=== PATIENT | male | born 1965 | race African-American/Black ===

== ENCOUNTER 2020-04-21 10:25 | Emergency (ER) | payer OTHER, SELFPAY ==
[2020-04-21 10:43] VITALS: BP 133/97; PULSE 68; RESP 16; TEMP 37.1; O2SAT 99
[2020-04-21 11:04] VITALS: BP 128/96
--- NOTE | 2020-04-21 11:18 | ED.BACK ---
HPI - Back Pain/Injury General Chief Complaint: Extremity Injury, Lower Stated Complaint: left leg/back pain Time Seen by Provider: 04/21/20 10:49 Source: patient and RN notes reviewed Mode of arrival: ambulatory Limitations: no limitations History of Present Illness HPI Narrative: Patient presents today complaining of left-sided low back pain radiating to the left posterior knee since yesterday. He experienced a pop in his back after lifting heavy boxes in a storage unit. Currently rates his pain 6/10, which increases with walking, sitting, standing. He took a leftover Flexeril and has been using Epson salt without much relief. History of left-sided sciatica in the past that was improved with physical therapy. Also history of 3 bulging disks in the lumbar spine. Denies numbness or tingling in the extremities. Denies any loss of bowel or bladder control. MD elicited complaint: back pain Related Data Home Medications Medication Instructions Recorded Confirmed amlodipine 5 mg PO DAILY 04/21/20 04/21/20 metoprolol succinate 25 mg PO DAILY 04/21/20 04/21/20 Allergies Allergy/AdvReac Type Severity Reaction Status Date / Time bacitracin Allergy Rash Verified 04/21/20 10:47 [From Neosporin ([id number])] neomycin Allergy Rash Verified 04/21/20 10:47 [From Neosporin ([id number])] polymyxin B Allergy Rash Verified 04/21/20 10:47 [From Neosporin ([id number])] Review of Systems Review of Systems: Narrative: CONSTITUTIONAL: Denies body aches, fever, chills, or sweats. EYES: Denies visual changes, redness, or discharge. ENT: Denies rhinorrhea, congestion, sore throat, or otalgia. CARDIOVASCULAR: Denies chest pain, palpitations, or edema. RESPIRATORY: Denies cough or dyspnea. GASTROINTESTINAL: Denies abdominal pain, nausea, vomiting, or diarrhea. GENITOURINARY: Denies dysuria or hematuria. SKIN: Denies rash, itching, or wounds. MUSCULOSKELETAL: Denies joint pain, or myalgia. + back pain NEUROLOGIC: Denies headache, numbness, tingling, or weakness. PSYCH: Denies depression or anxiety. [facility] Past Medical History Medical History (Updated 04/21/20 @ 11:29 by Blessing Sarmiento, FAMILY COURT COUNSELLOR, ) Sciatica Social History Social History Gender identity (if verbalized by the patient): Male Comments At time of signature, I have reviewed and agree with nursing past medical, surgical, social and family history unless otherwise noted. Please see nursing chart for further information. There is no relevant family history pertinent to the presenting complaint Exam Narrative: Exam Narrative: GENERAL: Well-appearing, well-nourished, and in mild pain distress. Guarding when sitting on exam table and standing. HEAD: Normocephalic, atraumatic. EYES: EOMI. No redness or drainage. Conjunctivae normal. ENT: Mucous membranes pink and moist. NECK: Normal AROM. CHEST: No respiratory distress. Clear to auscultation. HEART: Regular rate and rhythm. No murmur appreciated. Normal peripheral pulses. ABDOMEN: Soft, nontender, nondistended, normal active bowel sounds. MUSCULOSKELETAL: Mild tenderness to the lower lumbar spine. Mild left paraspinal muscle tenderness with small palpable muscle spasm. Palpation of the left SI joint reproduces radiating pain to the posterior knee. Distal sensation intact. Saddle sensation intact. Capillary refill normal. Left SLR ilicits pain in the posterior upper leg at 35-45 degrees. Right leg normal. EXTREMITIES: Foot push and pulls normal. SKIN: Warm, dry, no rash. Capillary refill normal. Normal skin turgor. NEURO: No focal deficits. Alert and oriented x3. Gait steady. PSYCH: Normal affect. No signs of depression or anxiety. Course Vital Signs Vital signs: Vital Signs Temperature 98.7 F 04/21/20 10:43 Pulse Rate 68 04/21/20 10:43 Respiratory Rate 16 04/21/20 10:43 Blood Pressure 133/97 H 04/21/20 10:43 Pulse Oximetry 99 04/21/20 10:43
== END 2020-04-21 11:35 | disposition home or self-care (01) ==
PROVIDERS: Emergency Provider Nurse Practitioner
DX: M54.32 Sciatica, left side (principal); I10 Essential (primary) hypertension
CPT/HCPCS: 99203; G0463

== ENCOUNTER 2022-02-21 13:34 | Outpatient (CLI) | payer BC, MEDICAID, SELFPAY ==
--- NOTE | 2022-02-23 12:32 | WPDHOLTEREM ---
Holter/Event Monitor Holter/Event Monitor Date of procedure: 02/21/22 Holter/Event Procedure: 24 Hr Holter Monitor Indications: Irregular heart rate Conclusion: 1. 24 hour holter monitor on 02/21/22. 2. Predominant rhythm is sinus rhythm. HR range 53-105 bpm; average HR 72 bpm. 3. There are 3,698 premature supraventricular complexes, 133 supraventricular couplets, 106 supraventricular bigeminy and 136 supraventricular trigeminy. There are 6 episodes of atrial tachycardia, fastest at 152 bpm and longest lasting 15 beats. 4. There are 122 premature ventricular complexes, 5 ventricular couplets, 16 ventricular bigeminy. There are 2 episodes of ventricular tachycardia, fastest at 188 bpm and longest lasting 5 beats. 5. No sinoatrial or atrioventricular blocks. No significant pauses greater than 2 seconds. 6. Patient reports symptoms of lightheadedness/heart flutter which demonstrates sinus rhythm at 69 bpm.
== END 2022-02-21 13:35 | disposition home or self-care (01) ==
LOC: ANHCARD 13:36
PROVIDERS: Visit Provider Internal Medicine
DX: R00.8 Other abnormalities of heart beat (principal)
CPT/HCPCS: 93225; 93226

== ENCOUNTER 2024-04-24 21:30 | Observation (INO) | payer OTHER, MEDICAID, SELFPAY ==
--- NOTE | ~2024-04-24 | CT_ITS ---
EXAMINATION: CT brain wo con DATE: 04/24/2024 21:48 INDICATION: Stroke. TECHNIQUE: Computed tomography (CT) of the head was performed without intravenous contrast. The mA wa s adjusted according to patient size. Iterative reconstruction technique was employed. The dose-lengt h product was 529.67 mGy-cm. COMPARISON: None FINDINGS: There is no intracranial hemorrhage, acute infarction, or abnormal intracranial mass lesion . The ventricles are normal in size. The orbits are normal. The paranasal sinuses are clear. The mast oid air cells are normal. IMPRESSION: 1. Normal brain. I called this result to Dr. Garrett. Reviewed, dictated and finalized at location A.
--- NOTE | ~2024-04-24 | XR_ITS ---
EXAMINATION: XR chest 1V DATE: 04/24/2024 22:01 INDICATION: Stroke. Altered mental status. TECHNIQUE: A single frontal view of the chest was obtained. COMPARISON: None. FINDINGS: There is no pneumonia, pleural effusion, or pneumothorax. The heart size is normal. IMPRESSION: 1. No acute cardiopulmonary disease. Reviewed, dictated and finalized at location A.
--- NOTE | ~2024-04-24 | CT_ITS ---
EXAMINATION: CTA brain carotid DATE: 04/24/2024 23:26 INDICATION: Stroke. TECHNIQUE: Computed tomographic angiography (CTA) of the head was performed with 100 mL Omnipaque-350 intravenous contrast. CTA of the neck was performed with intravenous contrast. Automated exposure co ntrol and iterative reconstruction technique were employed. The dose-length product was 1108.37 mGy-c m. Maximum intensity projection and volume rendered 3D-reconstructions were created by the [employer] st on a separate workstation. COMPARISON: Head CT 04/24/24 FINDINGS: HEAD CTA: There is no intracranial hemorrhage, acute infarction, or abnormal intracranial mass lesion . The ventricles are normal in size. The orbits are normal. There is mild mucosal thickening in the p aranasal sinuses. The mastoid air cells are normal. Left vertebral artery is dominant. The stents in the stenosis of basilar artery or the posterior cerebral arteries. There is no significant stenosis o f the intracranial internal carotid arteries or anterior cerebral arteries. There is total occlusion of proximal right middle cerebral artery. Anterior communicating artery is normal. The posterior comm unicating arteries are normal. There is no aneurysm. NECK CTA: There is mild emphysema. There are no pathologically enlarged lymph nodes. There is no sign ificant stenosis of the vertebral arteries. There is plaque in the proximal internal carotid arteries . There is 0% stenosis of the proximal right internal carotid artery relative to normal distal artery lumen diameter (NASCET criteria). There is 0% stenosis of the proximal left internal carotid artery relative to normal distal artery lumen diameter. There is mild cervical spondylosis. IMPRESSION: 1. Total occlusion of proximal right middle cerebral artery. No visible infarct. 2. 0% stenosis of the proximal internal carotid arteries relative to normal distal artery lumen diame ters (NASCET criteria). Reviewed, dictated and finalized at location A. IMPRESSION: 1. Total occlusion of proximal right middle cerebral artery. No visible infarct . 2. 0% stenosis of the proximal internal carotid arteries relative to normal dis lo artery lumen diameters (NASCET criteria).
--- NOTE | ~2024-04-24 | US_ITS ---
EXAMINATION: US carotid duplex BI DATE: 04/25/2024 11:17 INDICATION: CVA TECHNIQUE: Grayscale, color Doppler, and pulsed Doppler images of the cervical carotid arteries were obtained. The degree of vessel stenosis is placed in one of the following categories: normal, <50%, 5 0-69%, >=70% but less than near-occlusion, near-occlusion, or total occlusion. Note that percent sten osis relative to normal distal artery lumen diameter is indirectly measured from velocity measurement s as described by Janes, et al. Radiology 2003; 229:340-346. Notes: Normal: Peak systolic velocity <125 centimeters/sec and no plaque <50%. Peak systolic velocity <125 ( EDV <40; ICA/CCA PSV ratio <2.0; used these factors only a tandem lesions or low cardiac output or co ntralateral disease) 50-69 %: PSV 125-230 (EDV 40-100; ratio 2-4) >= 70% but less than near occlusion: PSV greater than 230 (EDV > 100; ratio> 4.0) Near Occlusion: PSV that is variable; markedly narrowed lumen Occlusion: Absent flow on color/spectral Doppler and no lumen on lagos scale. COMPARISON: None. FINDINGS: RIGHT: The right common carotid artery (CCA) peak systolic velocity (PSV) is 77 cm/s. The right internal car otid artery (ICA) PSV is 2 cm/s. The right ICA end-diastolic velocity (EDV) is 21 cm/s. The right ICA /CCA PSV ratio is 0.9. The external carotid artery (ECA) PSV is 42 cm/s. There is antegrade flow in t he right vertebral artery. LEFT: The left CCA PSV is 63 cm/s. The left ICA PSV is 54 cm/s. The left ICA EDV is 24 cm/s. The left ICA/C CA PSV ratio is 0.9. The ECA PSV is 49 cm/s. There is antegrade flow in the left vertebral artery. IMPRESSION: 1. Less than 50% stenosis in the right internal carotid artery by sonographic criteria. 2. Less than 50% stenosis in the left internal carotid artery by sonographic criteria. Reviewed, dictated and finalized at location B. IMPRESSION: 1. Less than 50% stenosis in the right internal carotid artery by sonographic amngo whitehead. 2. Less than 50% stenosis in the left internal carotid artery by sonographic catracho maxwell.
--- NOTE | ~2024-04-24 | MR_ITS ---
EXAMINATION: MR brain/brain stem wo/w con DATE: 04/25/2024 11:46 INDICATION: Right middle cerebral artery occlusion TECHNIQUE: Magnetic resonance imaging (MRI) of the brain and brainstem was performed without and with 20 mL Multihance intravenous contrast. Sequences included sagittal and axial T1-weighted SE, axial d iffusion-weighted FS SE, axial 3D SWAN, axial T2-weighted FLAIR, and axial T2-weighted FSE. Postcontr ast axial and coronal T1-weighted SE was obtained. Apparent diffusion coefficient (ADC) maps were cre ated. COMPARISON: Head CT and CT angiogram dated 04/24/2024 FINDINGS: Several regions of restricted diffusion in the right middle cerebral artery vascular distribution con sistent with acute infarct. This includes a moderate-sized region at the anterior right temporal lobe , small region in the right parieto-occipital region and a few additional small foci in the posterior right frontal lobe, the posterior right temporal lobe and in the subinsular white matter. There is s ome associated cytotoxic edema associated with the regions of infarct on the T2-weighted imaging. No intracranial hemorrhage or abnormal intracranial mass lesion. There are no intraparenchymal signal ab normalities seen on the other pulse sequences. The ventricles are symmetric and normal in size. There are no abnormal extra-axial fluid collections. With the exception of the previously noted thrombosed distal right middle cerebral artery, flow voids are seen in the cerebral arteries on the T2-weighted sequences consistent with their expected patency. There is asymmetric increased prominence of small contrast opacified vessels along the right sylvian fissure when compared with the left likely related to collateral flow with luxury perfusion. There are no abnormally enhancing brain lesions. Visualize d orbits and soft tissues are unremarkable. IMPRESSION: 1. 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 Reviewed, dictated and finalized at location A. IMPRESSION: 1. 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
--- NOTE | ~2024-04-24 | CT_ITS ---
EXAMINATION: CT brain wo con DATE: 04/25/2024 15:49 INDICATION: Cerebral vascular accident. TECHNIQUE: Computed tomography (CT) of the head was performed without intravenous contrast. The mA wa s adjusted according to patient size. Iterative reconstruction technique was employed. The dose-lengt h product was 605.33 mGy-cm. COMPARISON: Head CT 04/24/2024, brain MRI 04/25/2024 FINDINGS: There are hypodense acute infarcts involving right insula, right temporal lobe, right parie lo occipital region, and right temporal occipital region. There is no acute intracranial hemorrhage or abnormal mass lesion. The ventricles are normal in size. The orbits are normal. There is mild muco stephanie thickening in the ethmoid sinuses. The mastoid air cells are normal. IMPRESSION: 1. Acute infarcts in the right insula, right temporal lobe, right parietal occipital region, and righ t temporal occipital region, unchanged in distribution from the brain MRI. Reviewed, dictated and finalized at location A. IMPRESSION: 1. Acute infarcts in the right insula, right temporal lobe, right parietal occi pital region, and right temporal occipital region, unchanged in distribution fr om the brain MRI.
--- NOTE | 2024-04-24 21:35 | ECG_ITS ---
Test Date: 2024-04-24 22:51:08 Measurements Intervals [place] Rate: 65 P: 79 IN: 137 QRS: -31 QRSD: 81 T: -37 QT: 412 QTc: 430 Interpretive Statements SINUS RHYTHM WITH OCCASIONAL SUPRAVENTRICULAR PREMATURE COMPLEXES LEFT ATRIAL ENLARGEMENT [-0.15mV P WAVE IN V1/V2] MARKED LEFT AXIS DEVIATION [QRS AXIS < -30] SEPTAL MYOCARDIAL INFARCTION , OF INDETERMINATE AGE [40+ ms Q WAVE IN V1/V2] NONSPECIFIC T-WAVE ABNORMALITY ABNORMAL ECG No previous ECG available for comparison Electronically Signed On 04-25-2024 13:18:41 CDT by Ari Kelley M.D.
[2024-04-24 21:37] LABS: Glucose Point of Care 113 mg/dl (65-105)
[2024-04-24 21:56] LABS: Estimated Glomerular Filt Rate 42
[2024-04-24 21:59] LABS: Basophils Absolute Auto 0.1 K/mm3 (0.0-0.1); Basophils Percent Auto 1.1 % (0.2-1.2); Eosinophils Absolute Auto 0.1 K/mm3 (0-0.3); Eosinophils Percent Auto 1.9 % (0-4.4); Hematocrit 46.5 % (42.0-52.0); Hemoglobin 15.4 g/dL (14.0-18.0); Immature Granulocyte Absolute 0.01 K/mm3 (0.00-0.031); Immature Granulocyte Percent A 0.2 % (0-0.5); Lymphocytes Absolute Auto 2.12 K/mm3 (0.9-3.2); Lymphocytes Percent Auto 40.6 % (18.3-44.2); Mean Corpuscular HGB Conc 33.1 g/dl (32-36); Mean Corpuscular Hemoglobin 28.7 pg (26-34); Mean Corpuscular Volume 86.6 fl (80-100); Mean Platelet Volume 11.6 fl (7.4-10.4); Monocytes Absolute Auto 0.7 K/mm3 (0.1-0.6); Monocytes Percent Auto 13.4 % (2.6-8.5); Neutrophils Absolute Auto 2.2 K/mm3 (1.3-6.7); Neutrophils Percent Auto 42.8 % (45.5-73.1); Platelet Count Result 145 k/mm3 (150-375); Red Blood Count 5.37 M/mm3 (4.6-6.20); Red Cell Distribution Width 16.6 % (11.5-14.5); White Blood Count 5.2 K/mm3 (4.5-10.0)
[2024-04-24 22:06] VITALS: BP 154/105; BP 161/109; PULSE 67; PULSE 70; RESP 22; RESP 73; O2SAT 100
[2024-04-24 22:08] LABS: Prothrombin Time 14.2 Seconds (11.1-14.7)
[2024-04-24 22:09] LABS: Alanine Aminotransferase 23 U/L (6-50); Alkaline Phosphatase 46 U/L (38-126); Anion Gap 8 mmol/L (4-12); Aspartate Amino Transferase 31 U/L (17-59); Bilirubin,Total 0.8 mg/dL (0.2-1.3); Blood Urea Nitrogen 22 mg/dL (9-20); Carbon Dioxide 27 mmol/L (22-30); Chloride 105 mmol/L (98-107); Estimated Glomerular Filt Rate 50; Glucose 95 mg/dL (65-110); Partial Thromboplastin Time 26.6 Seconds (22.3-36.8); Potassium 4.5 mmol/L (3.4-5.0); Sodium 140 mmol/L (137-145)
--- NOTE | 2024-04-24 22:38 | ED.GENADULT ---
HPI - General Adult General Chief complaint: Neuro Symptoms/Deficit Stated complaint: confusion, balance problems Time Seen by Provider: 04/24/24 21:32 History of Present Illness HPI narrative: Patient is a 59-year-old male who presents to the emergency department this evening complaining of an episode of confusion and walking off balance. Patient was at work and was told by his coworkers that he was acting off. Patient's co-worker who is present in the ED with him states that symptoms started a few hours ago. Patient does appear to have mild left-sided facial droop, however, patient and co-worker are not sure if this is a new finding. Patient denies any drug or alcohol abuse and denies any similar symptoms in the past. He denies any focal weakness, numbness and tingling. Denies any history of strokes. States that his only medical history is hypertension and he takes blood pressure medications for this. His currently denying any headaches. No additional symptoms or concerns at this time. Patient is alert and oriented to person, place, time and situation and answering all questions appropriately during my triage assessment. NIH score 1. GCS 15. Related Data Home Medications Medication Instructions Recorded Confirmed atorvastatin 40 mg tablet 40 mg PO HS 04/25/24 04/25/24 metoprolol succinate 50 mg 75 mg PO DAILY 04/25/24 04/25/24 tablet,extended release 24 hr Allergies Allergy/AdvReac Type Severity Reaction Status Date / Time bacitracin Allergy Rash Verified 03/26/24 08:32 [From Neosporin ([id number])] neomycin Allergy Rash Verified 03/26/24 08:32 [From Neosporin ([id number]-[id number])] polymyxin B Allergy Rash Verified 03/26/24 08:32 [From Neosporin ([id number])] Review of Systems Review of Systems: All systems are reviewed and are negative unless stated otherwise in the HPI. [facility] [place] Past Medical History Medical History Sciatica Social History Social History Smoking packs per day: 0.5 Smoking cigarettes per day: 10.0 Smoking status: Current every day smoker Alcohol intake: never Substance use: never Do You Feel Safe in your Home?: Yes Lack of Transportation: No Lack of Food: Never True Current Housing: I Have Housing Concerned About Future Housing: No Difficulty Paying Gas/Electric Bills: No Difficulty Paying for Meds: No Currently Unemployed: No Education: High School Diploma/GED Difficulty w/ Childcare or Family Care: No Gender identity (if verbalized by the patient): Male Spiritual care concerns: Yes Exam Narrative: General: Alert, awake, afebrile, in no acute distress. HEENT: PERRL, no rhinorrhea, no post nasal drip, oropharynx clear. Cardiovascular: Regular rate and rhythm, no murmurs, rubs or gallops, no peripheral edema. Respiratory: Clear to auscultation bilaterally, no tachypnea, no wheezing, no rhonchi, no rubs, no respiratory distress. Abdomen: Soft, nontender, nondistended, no rebound, no guarding, no peritoneal signs. Musculoskeletal: No joint swelling or deformity, normal muscle tone. Skin: No rashes or petechia, no signs of infection. Neurological: Alert and oriented to person, place, and time. Follows all commands. Mild left-sided facial droop noted, 5/5 motor strength in the bilateral upper and lower extremity, sensation intact bilateral upper and lower extremity, cranial nerves 2-12 grossly intact, speech is clear and fluent. NIH score 1, GCS 15. Course Vital Signs Vital signs: Vital Signs Pulse Rate 70 04/24/24 22:06 Respiratory Rate 73 H 04/24/24 22:06 Blood Pressure 154/105 H 04/24/24 22:06 Pulse Oximetry 100 04/24/24 22:06 Oxygen Delivery Room Air 04/24/24 22:06 Temperature 97.7 F 04/25/24 02:22 Pulse Rate 62 04/25/24 02:22 Respiratory Rate 18 04/25/24 02:22 B
[2024-04-24] MEDS: SODIUM CHLORIDE 0.9% IV 1,000 ML 999 ML IV CONT (22:48)
[2024-04-24 23:02] LABS: Add Urine Microscopic? NO; Appearance Urine Clear (Clear); Bilirubin Urine Negative (Negative); Blood Urine Negative (Negative); Color Urine Yellow (Yellow); Glucose Urine UA Negative (Negative); Ketones Urine Trace mg/dL (Negative); Leukocyte Esterase Ur Negative LEU/UL (Negative); Nitrate Urine Negative (Negative); Protein Urine Negative (Negative); Specific Grav Ur 1.022 (1.001-1.035); pH Urine 5.5 (5.0-9.0)
[2024-04-25] VITALS (19 sets, daily range): BP systolic 150–190; BP diastolic 80–113; PULSE 57–76; RESP 16–20; TEMP 36.1–36.6; O2SAT 16–100; BMI 28.1; BMI 29.0
--- NOTE | 2024-04-25 | ECHO_ITS ---
Patient Info Name: Renard Monsalve Age: 59 years : 1965 Gender: Male Ht: 73 in Wt: 220 lbs BSA: 2.29 m2 HR: 69 bpm BP: 153 / 95 mmHg Technical Quality: Fair Exam Date: 04/25/2024 10:10 AM Exam Location: Echo Lab Patient Status: Inpatient Admit Date: 04/25/2024 Staff Ordering Physician: Bina Sol MD Behavioral Modification Assistant: Stefan Carter RDCS Attending Provider: Bina Sol MD Referring Physician: Sweta HERNANDEZ; Exam Type: CA echo doppler w bubble study Study Info Indications - STROKE Complete two-dimensional, color flow and Doppler transthoracic echocardiogram is performed with agitated saline. Summary 1. Left ventricular chamber dimension is normal. 2. Left ventricular systolic function is normal, estimated at 55-60%. 3. There is mild concentric increased left ventricular wall thickness. 4. The left ventricular diastolic function is abnormal. 5. E/e' 19 is elevated. 6. Left atrial chamber dimension is mildly enlarged. 7. There is mild aortic valve regurgitation. 8. The mitral valve has mildly calcified annulus. 9. There is mild mitral valve regurgitation. 10. There is mild tricuspid valve regurgitation. 11. No pulmonary hypertension, estimated pulmonary arterial systolic pressure is 30 mmHg. 12. There is trace pulmonic regurgitation. Left Ventricle E/e' 19 is elevated. Left ventricular chamber dimension is normal. Left ventricular systolic function is normal, estimated at 55-60%. There is mild concentric increased left ventricular wall thickness. The left ventricular diastolic function is abnormal. Right Ventricle Right ventricular systolic function is normal and with normal TAPSE 2.8 cm. Right ventricular chamber dimension is normal. Left Atria Left atrial chamber dimension is mildly enlarged. Right Atria Right atrial chamber dimension is normal. Atrial Septum Agitated saline injection with and without valsalva maneuver opacified right side cardiac chambers without shunt to left side cardiac chambers. Intact interatrial septum visualized by 2D and agitated saline imaging. Aortic Valve The aortic valve is trileaflet. There is no aortic valve sclerosis. There is no aortic valve stenosis. There is mild aortic valve regurgitation. Pulmonic Valve There is trace pulmonic regurgitation. Mitral Valve The mitral valve has mildly calcified annulus. There is no mitral valve stenosis. There is mild mitral valve regurgitation. Tricuspid Valve There is mild tricuspid valve regurgitation. No pulmonary hypertension, estimated pulmonary arterial systolic pressure is 30 mmHg. Pericardium/Pleural There is no pericardial effusion. Inferior Vena Cava Normal inferior vena cava with >50% collapse upon inspiration consistent with normal right atrial pressure, 5 mmHg. Aorta The aortic root size at the sinus of Valsalva is normal. Left Ventricular Outflow Tract Name Value Normal LVOT 2D LVOT Diameter 2.1 cm LVOT Doppler LVOT Peak Gradient 3 mmHg LVOT Mean Gradient 2 mmHg LVOT VTI 19 cm LVOT VTI/AV VTI Ratio 1.1 LVOT Stroke Volume
--- NOTE | 2024-04-25 00:31 | PM.IMHP ---
H&P: HPI History of Present Illness Date/Time: 04/25/24 00:31 Chief Complaint: ams Narrative: This is a 59-year-old male with past medical history significant for paroxysmal atrial fibrillation, hypertension. Patient presents to the emergency room due to altered mental status according to his friends and gait disturbance according to his companionship he was confused and unstable on his gait. Patient denies all of the above states that he feels his usual denies any vision changes, headaches, lightheadedness, focal weakness focal paresthesias. patient was found to have elevated blood pressure in the emergency room and preliminary workup was significant for CT angiogram of head and neck with right middle cerebral artery proximal occlusion with no infarct. Patient has been placed in observation for further evaluation management and treatment. EXAMINATION: CT brain wo con DATE: 04/24/2024 21:48 INDICATION: Stroke. TECHNIQUE: Computed tomography (CT) of the head was performed without intravenous contrast. The mA was adjusted according to patient size. Iterative reconstruction technique was employed. The dose-length product was 529.67 mGy-cm. COMPARISON: None FINDINGS: There is no intracranial hemorrhage, acute infarction, or abnormal intracranial mass lesion. The ventricles are normal in size. The orbits are normal. The paranasal sinuses are clear. The mastoid air cells are normal. IMPRESSION: 1. Normal brain. I called this result to Dr. Garrett. EXAMINATION: XR chest 1V DATE: 04/24/2024 22:01 INDICATION: Stroke. Altered mental status. TECHNIQUE: A single frontal view of the chest was obtained. COMPARISON: None. FINDINGS: There is no pneumonia, pleural effusion, or pneumothorax. The heart size is normal. IMPRESSION: 1. No acute cardiopulmonary disease. EXAMINATION: CTA brain carotid DATE: 04/24/2024 23:26 INDICATION: Stroke. TECHNIQUE: Computed tomographic angiography (CTA) of the head was performed with 100 mL Omnipaque-350 intravenous contrast. CTA of the neck was performed with intravenous contrast. Automated exposure control and iterative reconstruction technique were employed. The dose-length product was 1108.37 mGy-cm. Maximum intensity projection and volume rendered 3D-reconstructions were created by the technologist on a separate workstation. COMPARISON: Head CT 04/24/24 FINDINGS: HEAD CTA: There is no intracranial hemorrhage, acute infarction, or abnormal intracranial mass lesion. The ventricles are normal in size. The orbits are normal. There is mild mucosal thickening in the paranasal sinuses. The mastoid air cells are normal. Left vertebral artery is dominant. The stents in the stenosis of basilar artery or the posterior cerebral arteries. There is no significant stenosis of the intracranial internal carotid arteries or anterior cerebral arteries. There is total occlusion of proximal right middle cerebral artery. Anterior communicating artery is normal. The posterior communicating arteries are normal. There is no aneurysm. NECK CTA: There is mild emphysema. There are no pathologically enlarged lymph nodes. There is no significant stenosis of the vertebral arteries. There is plaque in the proximal internal carotid arteries. There is 0% stenosis of the proximal right internal carotid artery relative to normal distal artery lumen diameter (NASCET criteria). There is 0% stenosis of the proximal left internal carotid artery relative to normal distal artery lumen diameter. There is mild cervical spondylosis. IMPRESSION: 1. Total occlusion of proximal right middle cerebral artery. No visible infarct. 2. 0% stenosis of the proximal internal carotid arteries relative to normal distal artery lumen diameters (NASCET criteria). Review of Systems Review of Systems: Confusion, gait instability [facility] Past Medical History Medical History Sciatica
[2024-04-25 00:56] LABS: Troponin I 0.018 ng/mL (0.000-0.034)
--- NOTE | 2024-04-25 02:29 | ADMGEN ---
This patient, Renard Monsalve, was admitted to IMU Room 211-01 at 0222. Patient/family oriented to hospital policies and general routines including ID bracelet, bed and alarms, visiting hours, pain management, procedures, bathroom and other care routines, personal items, smoking policy, room service/diet, and visiting hours. Information on how to activate the Rapid Response Team has been discussed. Patient/Family are encouraged to report perceived risks to care and to ask questions if they do not understand what they are told or what they should do.
--- NOTE | 2024-04-25 08:13 | PM.IMPN ---
Progress Note: A&P Assessment and Plan (1) Ischemic cerebrovascular accident (CVA): Code(s): I63.9 - Cerebral infarction, unspecified Status: Acute (2) Stroke: Code(s): I63.9 - Cerebral infarction, unspecified Status: Acute (3) PAF (paroxysmal atrial fibrillation): Code(s): I48.0 - Paroxysmal atrial fibrillation Status: Acute (4) Hypertension: Code(s): I10 - Essential (primary) hypertension Status: Acute Plan #CVA -Head/ Neck CTA :Reviewed -MRI : Order -Carotid US:Reviewed - Nurse call around 15:15 reporting she witnessed facial droop, left and left leg weakness. When I examined he completely recovered no signs of any facial droop or leg weakness. Although after 5 minutes patient again exhibited the left-sided facial droop and left-sided upper and lower extremity weakness. Ordered stat CT scan to rule out any hemorrhagic conversion of the stroke. The repeat CT scan shows acute infarct in the right insula, right temporal lobe right parietal occipital region, and right temporal occipital region unchanged in the distribution from the brain MRI. Patient currently had a NIH score is 6. Later about 30 minutes patient had urinary incontinence. No evidence of seizures. We called [facility] and spoke with Dr Enriquez were reported he has been crossed the Medical window for any intervention but will definitely get benefit from the the facility with neuro intervention/neurologist. The call was transferred to [facility], I spoke with the Dr. Schmitt who agreed for Critical transfer.Advised not to intervene his BP, which -Head and neck CTA shows total occlusion of proximal right middle cerebral artery. No visible infarct. 0% stenosis of the proximal internal carotid arteries related to normal distal to the lumen diameter. The head CTA shows stents in the stenosis of the basilar artery which we would like to need clarification from the radiology. -Started high-dose atorvastatin 80 mg, aspirin 81 and Plavix. -Underwent MRI and reviewed result. -Echocardiogram ordered # A.FIB -CHADVASC 1 -On asa 325 mg-Hold -Metoprolol 75 mg PO QD -Doesnt remember whether he takes AC or not. -Pharmacy report he was taking Flecainide 50mg PO BID but it was not filled from November. -Cardiology office note 03/26/2024:Advise to increase Flecainide 50 mg BID. And increase Metoprolol Succinate 75 mg and follow-up in 2 months Transfer to [facility] as critical care patient. Subjective Date/time seen: 04/25/24 08:13 Interval history: AM:Patient was examined at the bedside with the presence of his . 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 The student tank driver reported he was losing balance although he denies it. The student reported that he is stepping on a paper which he denies seeing. Patient denies any loss of vision, loss of conscious, muscle weakness, or neurological deficits. Student tank driver called his boss who advised the patient to come to ED. during the examination patient denies any stent placement in the heart or in the brain. The patient's CT shows no significant finding. Head and neck CTA shows total occlusion of proximal right middle cerebral artery. No visible infarct. 0% stenosis of the proximal internal carotid arteries related to normal distal to the lumen diameter. The head CTA shows stents in the stenosis of the basilar artery which we would like to need clarification from the radiology. Patient reports taking high-dose statin 40 mg but he does not remember what he takes for atrial fibrillation. Patient also takes aspirin 325 mg as a home medication. Today we started high-dose atorvastatin 80 mg, aspirin 81 and Plavix. Patient underwent MRI and pending results. We also did a echocardiogram and carotid ultrasound. Carotid ultrasound shows less than 50% stenosis in the right internal and left internal carotid artery. Neurology is consulted.
[2024-04-25] MEDS: CLOPIDOGREL BISULFATE 75 MG TABLET PO (15:11)
[2024-04-25] MEDS: ASPIRIN 81 MG ENTERIC TABLET PO (15:11)
--- NOTE | 2024-04-25 18:38 | PC.NURSE ---
Around 1530 nurse went to give medication to patient. Nurse found the patient to have left side facial droop along with left side weakness and slurred speech. Nurse assessed patient and called lost charge card clerk to report findings. woven wood shade assembler assessed patient as well and paged Dr. Mckeon. Dr. Mckeon came to assess patient. When arrived patients symptoms had subsided orders for STAT head CT placed. Around 1720 patient begun to have same symptoms as before. This time patient had an episode of incontinence and nausea along with it. notified and decided to transfer patient to different facility for higher level of care.
[2024-04-25] MEDS: ONDANSETRON INJ 4 MG/2 ML VIAL IV PUSH (19:40)
--- NOTE | 2024-04-25 21:20 | PC.NURSE ---
Pt. was transported via [facility] to [facility] rm [id number]. [facility] notified at 2022. Family at beside, pt. left unit at 2024. ARLEN.
--- NOTE | 2024-04-26 17:04 | PM.TDS ---
Transfer Discharge Sum: Prov Provider Date of admission: 04/25/24 00:43 Primary care physician: Mario Rudd, Admitting clinician: Bina Sol MD Consults: 04/25/24 09:45 Consult to Physician Routine Comment: Consulting Provider: director call/MD group to consult: Dr Underwood Reason for consultation: CVA Has provider been notified: No DS: Admitting Diagnosis Discharge Date 04/25/24 Admitting Diagnosis CVA DS: Discharge Diagnosis Discharge Diagnosis (1) Ischemic cerebrovascular accident (CVA): Code(s): I63.9 - Cerebral infarction, unspecified Status: Acute (2) Stroke: Code(s): I63.9 - Cerebral infarction, unspecified Status: Acute (3) PAF (paroxysmal atrial fibrillation): Code(s): I48.0 - Paroxysmal atrial fibrillation Status: Acute (4) Hypertension: Code(s): I10 - Essential (primary) hypertension Status: Acute Plan #CVA -Head/ Neck CTA :Reviewed -MRI : Order -Carotid US:Reviewed - Nurse call around 15:15 reporting she witnessed facial droop, left and left leg weakness. When I examined he completely recovered no signs of any facial droop or leg weakness. Although after 5 minutes patient again exhibited the left-sided facial droop and left-sided upper and lower extremity weakness. Ordered stat CT scan to rule out any hemorrhagic conversion of the stroke. The repeat CT scan shows acute infarct in the right insula, right temporal lobe right parietal occipital region, and right temporal occipital region unchanged in the distribution from the brain MRI. Patient currently had a NIH score is 6. Later about 30 minutes patient had urinary incontinence. No evidence of seizures. We called [facility] and spoke with Dr Enriquez were reported he has been crossed the Medical window for any intervention but will definitely get benefit from the the facility with neuro intervention/neurologist. The call was transferred to [facility], I spoke with the Dr. Schmitt who agreed for Critical transfer.Advised not to intervene his BP, which -Head and neck CTA shows total occlusion of proximal right middle cerebral artery. No visible infarct. 0% stenosis of the proximal internal carotid arteries related to normal distal to the lumen diameter. The head CTA shows stents in the stenosis of the basilar artery which we would like to need clarification from the radiology. -Started high-dose atorvastatin 80 mg, aspirin 81 and Plavix. -Underwent MRI and reviewed result. -Echocardiogram ordered # A.FIB -CHADVASC 1 -On asa 325 mg-Hold -Metoprolol 75 mg PO QD -Doesnt remember whether he takes AC or not. -Pharmacy report he was taking Flecainide 50mg PO BID but it was not filled from November. -Cardiology office note 03/26/2024:Advise to increase Flecainide 50 mg BID. And increase Metoprolol Succinate 75 mg and follow-up in 2 months Transfer to [facility] as critical care patient. Transfer Discharge Sum: Med Medications Active and Home Medications: Home Medications aspirin 325 mg tablet,delayed release 325 mg PO DAILY #30 tabs 12/05/23 [Rx Confirmed 04/25/24] atorvastatin 40 mg tablet 40 mg PO HS 04/25/24 [History Confirmed 04/25/24] metoprolol succinate 50 mg tablet,extended release 24 hr 75 mg PO DAILY 04/25/24 [History Confirmed 04/25/24] Transfer Discharge Sum: Hosp Hospital Course Hospital course: This is a 59-year-old male with past medical history significant for paroxysmal atrial fibrillation, hypertension. Patient presents to the emergency room due to altered mental status according to his friends and gait disturbance according to his companionship he was confused and unstable on his gait. Patient denies all of the above states that he feels his usual denies any vision changes, headaches, lightheadedness, focal weakness focal paresthesias. patient was found to have elevated blood pressure in the emergency room and preliminary wor
== END 2024-04-25 20:25 | disposition short-term general hospital (02) ==
LOC: ANHED 04-25 00:42 → ANHIMU 04-25 02:57
PROVIDERS: Admitting Provider Internal Medicine; Emergency Provider Emergency Medicine; PCP Internal Medicine; Visit Provider General Practice
DX: I63.9 Cerebral infarction, unspecified (principal); I48.0 Paroxysmal atrial fibrillation; R29.706 NIHSS score 6; I66.01 Occlusion and stenosis of right middle cerebral artery; I08.3 Combined rheumatic disorders of mitral, aortic and tricuspid valves; I10 Essential (primary) hypertension; F17.210 Nicotine dependence, cigarettes, uncomplicated; Z79.82 Long term (current) use of aspirin; Z79.899 Other long term (current) drug therapy
CPT/HCPCS: 36415; 70450; 70496; 70498; 70553; 71045; 80053; 81003; 82948; 84484; 85025; 85610; 85730; 93005; 93306; 93880; 96361; 96374; 96375; 99285; A9270; A9577; G0378; J2405; J7030; Q9967

== ENCOUNTER 2024-07-23 08:37 | Outpatient (CLI) | payer OTHER, MEDICAID, SELFPAY ==
--- NOTE | ~2024-07-23 | US_ITS ---
EXAMINATION: US renal BI DATE: 07/23/2024 09:41 INDICATION: Other specified abnormal findings of blood chemistry. Elevated creatinine. Hypertension. TECHNIQUE: Multiple ultrasound grayscale images of the kidneys were obtained. COMPARISON: None. FINDINGS: The right kidney measures 11.3 x 5.8 x 5.4 cm. The left kidney measures 11.1 x 5.5 x 4.0 cm. The kidn eys demonstrate normal echogenicity. There are a few bilateral anechoic renal cysts the largest on th e right measuring 2.8 cm the largest on the left measuring 1.3 cm. Indeterminate 8 mm hyperechoic les ion in the left kidney. There is no hydronephrosis in either kidney. No stones identified. The bladd er is normal. IMPRESSION: 1. A few bilateral renal cysts. No hydronephrosis. 2. 8 mm hyperechoic lesion in the left kidney which could represent a fat-containing angiomyolipoma b ut remains indeterminate. Recommend pre and postcontrast MRI for further evaluation. Reviewed, dictated and finalized at location A. OR BIOSTATISTICIAN IMPRESSION: 1. A few bilateral renal cysts. No hydronephrosis. 2. 8 mm hyperechoic lesion in the left kidney which could represent a fat-conta ining angiomyolipoma but remains indeterminate. Recommend pre and postcontrast MRI for further evaluation.
== END 2024-07-23 08:38 | disposition home or self-care (01) ==
PROVIDERS: PCP Internal Medicine; Visit Provider Internal Medicine Infectious Disease
DX: R79.89 Other specified abnormal findings of blood chemistry (principal); N28.1 Cyst of kidney, acquired
CPT/HCPCS: 76775